=== PATIENT | female | born 1940 | race Two or more races ===

== ENCOUNTER 2017-11-29 10:21 | Outpatient (CLI) | payer OTHER | END 2017-11-29 15:50 | disposition home or self-care (01) | LOC: SONOGRAMA 10:21 | DX: R10.84 Generalized abdominal pain (principal); M06.1 Adult-onset Still's disease | CPT/HCPCS: 72148 ==

== ENCOUNTER 2019-02-07 13:14 | Outpatient (CLI) | payer OTHER | END 2019-02-07 13:22 | disposition home or self-care (01) | LOC: LAB 13:14 | DX: R10.84 Generalized abdominal pain (principal) ==

== ENCOUNTER → 2019-02-22 | Outpatient (CLI) | payer OTHER | END | disposition home or self-care (01) | LOC: TOM 10:24 | DX: R06.02 Shortness of breath (principal) ==

== ENCOUNTER 2020-09-19 10:33 | Outpatient (CLI) | payer OTHER | END 2020-09-19 10:50 | disposition home or self-care (01) | LOC: MAMO-SONO 10:33 | PROVIDERS: ATTEND Family Medicine Adult Medicine | DX: Z12.31 Encounter for screening mammogram for malignant neoplasm of breast (principal); N64.89 Other specified disorders of breast ==